=== PATIENT | male | born 1985 | race Caucasian/White ===

== ENCOUNTER 2018-10-19 13:40 | Emergency (ER) | payer OTHER ==
[2018-10-19 13:56] VITALS: BP 142/90; PULSE 81; TEMP 97.9; BMI 25.0
[2018-10-19] MEDS ORDERED: ACETAMINOPHEN 500 MG TABLET (FP) PO ONE (14:06)
[2018-10-19] MEDS ORDERED: ACETAMINOPHEN 500 MG TABLET (FP) ONE (14:15)
--- NOTE | 2018-10-19 14:16 | PDOC ---
History of Present Illness - General Chief Complaint: Respiratory Stated Complaint: BODYACHES AND FEVER Time Seen by Provider: 10/19/18 13:56 History Source: Patient Exam Limitations: No Limitations - History of Present Illness Initial Comments: 10/19/18 14:04 33 yr male no PMHX with c/o cough nasal congestion fever chills started 3 days ago. Pt denies nvd no abd pain or back pain. Pt states he had his flu vaccine on saturday10/15/18. pt is a non smoker last dose naprosyn at 12noon today. Past History - Past Medical History Allergies/Adverse Reactions: Allergies Allergy/AdvReac Type Severity Reaction Status Date / Time No Known Allergies Allergy Verified 10/19/18 13:45 Home Medications: Ambulatory Orders NK [No Known Home Medication] 10/19/18 COPD: No - Suicide/Smoking/Psychosocial Hx Smoking History: Never smoked Substance Use Type: None *Physical Exam - Vital Signs Last Vital Signs Temp Pulse Resp BP Pulse Ox 97.9 F 81 18 142/90 100 10/19/18 13:42 10/19/18 13:42 10/19/18 13:42 10/19/18 13:42 10/19/18 13:42 - Physical Exam General Appearance: Yes: Nourished, Appropriately Dressed HEENT: positive: EOMI, RANDI, TMs Normal, Pharynx Normal, Nasal Congestion Neck: positive: Supple. negative: Tender Respiratory/Chest: positive: Lungs Clear, Normal Breath Sounds. negative: Chest Tender Cardiovascular: positive: Regular Rhythm, Regular Rate Gastrointestinal/Abdominal: positive: Normal Bowel Sounds, Soft Musculoskeletal: positive: Normal Inspection Extremity: positive: Normal Inspection, Normal Range of Motion Integumentary: positive: Normal Color, Dry, Warm Neurologic: positive: Fully Oriented, Alert, Normal Mood/Affect, Normal Response , Motor Strength 5/5 Moderate Sedation - Procedure Monitoring Vital Signs: Procedure Monitoring Vital Signs Temperature 97.9 F 10/19/18 13:42 Pulse Rate 81 10/19/18 13:42 Respiratory Rate 18 10/19/18 13:42 Blood Pressure 142/90 10/19/18 13:42 O2 Sat by Pulse Oximetry (%) 100 10/19/18 13:42 Medical Decision Making - Medical Decision Making 10/19/18 14:41 cc: nasal congestion body aches fever subjective yesterday stable vitals non toxic will check for flu *DC/Admit/Observation/Transfer Diagnosis at time of Disposition: Flu-like symptoms - Discharge Dispostion Disposition: HOME Condition at time of disposition: Good - Referrals Referrals: Luis F Burnett MD [Primary Care Provider] - - Patient Instructions Additional Instructions: drink pleanty of fluids to stay well hydrated take tylenol 650mg every 4-6hrs for pain or fever any over the counter mucinex or Delsym cough and cold medicine follow with your doctor in 1-2 days for follow up Return if any worsening symptoms - Post Discharge Activity
== END 2018-10-19 14:46 | disposition home or self-care (01) ==
LOC: JER 13:40 → JERFT 13:40
DX: J11.1 Influenza due to unidentified influenza virus with other respiratory manifestations (principal)
CPT/HCPCS: 87804; 99281-25